=== PATIENT | female | born 1960 | race Caucasian/White ===

== ENCOUNTER → 2019-07-25 | Outpatient (CLI) | payer BC ==
[2019-07-25 11:20] LABS: FREE T4 (FREE THYROXINE) 1.67 ng/dL (0.78-2.19)
[2019-07-25 11:34] LABS: THYROID STIMULATING HORMONE 0.28 uIU/mL (0.47-4.68)
== END ==
LOC: LAB 09:45
PROVIDERS: ATTEND Internal Medicine Endocrinology, Diabetes & Metabolism
DX: C73 Malignant neoplasm of thyroid gland (principal); E89.0 Postprocedural hypothyroidism; Z51.81 Encounter for therapeutic drug level monitoring; Z79.899 Other long term (current) drug therapy
CPT/HCPCS: 36415; 84439; 84443; 86800